=== PATIENT | female | born 1995 | race Caucasian/White ===

== ENCOUNTER 2021-02-04 16:02 | Emergency (ER) | payer SELFPAY ==
[~2021-02-04] VITALS: Ht 167 cm; Wt 63.0 kg
--- OUTSIDE RECORDS SUMMARY | 2021-02-04 16:08 | XMS REPORT | Clinical Summary ---
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 Control Analyst Name Role Phone Aydin Salas MD PCP Allergies No Known Active Allergies Medications No known medications Active Problems No known active problems Social History Date Tobacco Use Types Packs/Day Years Used Current Every Day Smoker Cigarettes 1 Smokeless Tobacco: Never Used Comments Alcohol Use Standard Drinks/Week daily , beer vodka Yes 0 (1 standard drink = 0.6 o z pure alcohol) Sex Assigned at Date Recorded Female 12/24/2018 7:49 AM CDT Last Filed Vital Signs Reading Time Taken Comments Vital Sign 115/78 05/17/2017 2:16 PM MENTAL TESTER Blood Pressure 64 05/17/2017 2:16 PM MENTAL TESTER Pulse 36.8 C (98.3 F) 05/17/2017 2:16 PM MENTAL TESTER Temperature 18 05/17/2017 2:16 PM MENTAL TESTER Respiratory Rate 99% 05/17/2017 2:16 PM MENTAL TESTER Oxygen Saturation - - Inhaled Oxygen Concentration 80.7 kg (178 lb) 05/16/2017 11:19 PM MENTAL TESTER Weight 180.3 cm (5' 11") 05/16/2017 11:19 PM MENTAL TESTER Height 24.83 05/16/2017 11:19 PM MENTAL TESTER Body Mass Index Plan of Treatment Not on file Results Not on filefrom Last 3 Months Insurance Type Payer Benefit Subscriber ID Effective Phone Address Plan / Dates Group MEDICAID [employer] [place] [id number] ([place] -Present HE[place] [phone] [id number] (Home) [place] [id number] Abigail Phelps Personal/F Self 1995 [address] (Home) [place] [id number] Abigail Phelps Personal/F Self 1995 [address] (Home) [place] [address] Advance Directives For more information, please contact: [phone] 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
--- OUTSIDE RECORDS SUMMARY | 2021-02-04 16:08 | XMS REPORT | Clinical Summary ---
Author Author [facility] Organization [facility] Address Unknown Phone Unavailable Care Team Providers Care Scout Name Role Phone Olson, Braden Chamorro MD Unavailable Randy Shine MD PCP Source Comments Some departments are not documenting in the electronic medical record. If you d o not see the information that you expected, contact Release of Information in [facility] [employer] Information Management department at [phone] for further assistan ce in locating additional records.[facility] Allergies No Known Active Allergies Medications End Date Status Medication Sig Dispensed Refills Start Date Active other medication Take 1 Dose 0 by mouth daily. control pill. Active Problems Not on file Social History Date Tobacco Use Types Packs/Day Years Used Never Smoker Smokeless Tobacco: Never Used Comments Alcohol Use Standard Drinks/Week No 0 (1 standard drink = 0.6 o z pure alcohol) Sex Assigned at Date Recorded Not on file Last Filed Vital Signs Reading Time Taken Comments Vital Sign 123/71 12/22/2011 2:15 PM CDT Blood Pressure 122 12/22/2011 2:24 PM CDT Pulse 36.6 C (97.9 F) 12/22/2011 12:30 PM CDT Temperature - - Respiratory Rate 99% 12/22/2011 2:00 PM CDT Oxygen Saturation - - Inhaled Oxygen Concentration 64.9 kg (143 lb) 12/22/2011 8:01 AM CDT Weight 172.7 cm (5' 8") 12/22/2011 8:01 AM CDT Height 21.74 12/22/2011 8:01 AM CDT Body Mass Index Plan of Treatment Health Maintenance Due Date Last Done Comments HPV VACCINES (1 - 2-dose 12/06/2006 series) HIV SCREENING 12/06/2010 DTAP/TDAP VACCINES (1 - 12/06/2013 Tdap) HEPATITIS C SCREENING 12/06/2013 PHYSICAL (COMPREHENSIVE) 12/06/2013 EXAM CERVICAL CANCER SCREENING 12/06/2016 INFLUENZA VACCINE 03/06/2021 Results Not on filefrom Last 3 Months 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
--- NOTE | 2021-02-04 16:17 | ED Upper Extremity ---
General Chief Complaint: Laceration Stated Complaint: LT HAND INJ History of Present Illness Date Seen by Provider: Feb 04, 2021 Time Seen by Provider: 16:14 Initial Comments Patient with injury to her left hand ring finger from punching some auto glass in an attempt to break it. Told that she was encouraged by some "friends", but now she regrets it. Her story does not make much sense. No other injuries or pain, states her tetanus is up-to-date. Allergies and Home Medications Allergies Coded Allergies: No Known Drug Allergies (Unverified , 02/04/21) Patient Home Medication List Home Medication List Reviewed: Yes Review of Systems Constitutional: No fever, No malaise Musculoskeletal: see HPI, other (finger pain) Skin: see HPI, other (cuts to left hand RF) Past Ddybaap-Olccny-Xfdjow Hx Patient Social History Tobacco Use?: No Use of E-Cig and/or Vaping dev: Yes E-Cig or Vaping type used: Nicotine Substance use?: Yes Substance type: Methamphetamine, Marijuana Substance frequency: Daily Alcohol Use?: Yes Alcohol type: Beer Alcohol Frequency: Once in a while Pt feels they are or have been: No Physical Exam Vital Signs Vital Signs - First Documented 02/04/21 16:10 Temp 36.2 Pulse 123 Resp 14 B/P (MAP) 125/92 (103) Pulse Ox 100 O2 Delivery Room Air Capillary Refill : Height, Weight, BMI Height: '" Weight: lbs. oz. kg; BMI Method: General Appearance: WD/WN, no apparent distress Hand: normal inspection, normal ROM, Left, soft tissue tenderness (superficial lacerations- tiny w no palpable or visible FB. ) Progress/Results/Core Measures Results/Orders My Orders Orders - ARIS LAY DO Bacitracin Ointment (Bacitracin Ointment (02/04/21 21:00) Vital Signs/I&O 02/04/21 02/04/21 16:10 16:24 Temp 36.2 36.2 Pulse 123 123 Resp 14 14 B/P (MAP) 125/92 (103) 125/92 Pulse Ox 100 100 O2 Delivery Room Air Room Air Progress Progress Note : Progress Note Patient refused an X-ray to look for embedded glass or further/ deeper wound exploration. Advised on wound care and follow up if problems or concerns of infection or FB retained. Departure Impression Primary Impression: Laceration of finger Qualified Codes: S61.211A - Laceration without foreign body of left index finger without damage to nail, initial encounter Disposition: 01 HOME, SELF-CARE Condition: Stable Departure-Patient Inst. Decision time for Depature: 16:15 Referrals: [facility] (PCP/Family) Primary Care Physician Patient Instructions: Skin Abrasions (DC) Add. Discharge Instructions: Wash w soap daily, gently scrub w a soft cloth, removing any small pieces of glass if felt. Apply antibiotic ointment daily and keep covered for 1 week. Seek medical care if signs of infection develop: increased redness, swelling or wound discharge All discharge instructions reviewed with patient and/or family. Voiced understanding. ARIS LAY DO Feb 04, 2021 16:17
[2021-02-04 16:24] VITALS: BP 125/92
[2021-02-04] MEDS ORDERED: BACITRACIN OINTMENT 28 GM TUBE TOP SCH (21:00)
== END 2021-02-04 16:23 | disposition home or self-care (01) ==
LOC: ER FS 16:05
DX: S61.215A Laceration without foreign body of left ring finger without damage to nail, initial encounter (principal); W25.XXXA Contact with sharp glass, initial encounter
CPT/HCPCS: 99281

== ENCOUNTER 2021-04-08 01:46 | Emergency (ER) | payer SELFPAY ==
[~2021-04-08] VITALS: Ht 182 cm; Wt 63.6 kg
[2021-04-08] MEDS ORDERED: NS IV 1000 ML 1,000 ML IV STA (02:08)
--- NOTE | 2021-04-08 02:14 | ED GU-Female ---
General Chief Complaint: - Reproductive Stated Complaint: POSS MISCARRIAGE Source: patient History of Present Illness Date Seen by Provider: Apr 08, 2021 Time Seen by Provider: 01:52 Initial Comments 25-year-old female presenting with complaints of vaginal bleeding for over a week. She states that she had her last menstrual period about 2 months ago. S he had a home test that was positive. She has an appointment on April 08 to see provider in the [facility] clinic about . However over the last week she has had increased vaginal bleeding. Tonight she felt like the bleeding had increased and she was having cramping pain that felt like contractions. She did have discharge last week. She was concerned that her boyfriend had cheated on her. She had been using methamphetamines up to the point of when she had a positive home test however when she started bleeding she started using meth amphetamines again. She has used methamphetamines tonight prior to coming to the emergency department. Patient denies having been given RhoGam with previous pregnancies. Associated Symptoms: No diaphoresis; dysuria; No fever/chills, No loss of bladder control, No lower back pain, No lumps, No mass, No nausea/vomiting, No nocturia, No polyuria, No swelling, No syncope, No urinary frequency Allergies and Home Medications Allergies Coded Allergies: No Known Drug Allergies (Unverified , 02/04/21) Patient Home Medication List Home Medication List Reviewed: Yes Review of Systems Review of Systems Constitutional: No chills, No dizziness, No fever EENTM: no symptoms reported Respiratory: no symptoms reported Cardiovascular: palpitations Gastrointestinal: No nausea, No vomiting Genitourinary: discharge (Over a week ago, now just having vaginal bleeding. She is using about a pad every 1-3 hours.); denies dysuria : Yes (Based on a home test. LMP about 2 mo ago but unsure date) Musculoskeletal: no symptoms reported Skin: no symptoms reported Psychiatric/Neurological: Anxiety, Emotional Problems Hematologic/Lymphatic: Denies Blood Clots, Denies Easy Bleeding, Denies Easy Bruising Past Vpqumny-Admflb-Vifrjb Hx Patient Social History Tobacco Use?: Yes Tobacco type used: Cigarettes Substance use?: Yes Substance type: Methamphetamine, Marijuana Past Medical History Surgeries: No Physical Exam Vital Signs Vital Signs - First Documented 04/08/21 01:55 Temp 36.6 Pulse 131 Resp 18 B/P (MAP) 148/110 (123) Pulse Ox 99 O2 Delivery Room Air Capillary Refill : Height, Weight, BMI Height: '" Weight: lbs. oz. kg; 22.00 BMI Method: General Appearance: thin, other (anxious) HEENT: pharynx normal Neck: non-tender, full range of motion, supple, normal inspection Cardiovascular: normal peripheral pulses, tachycardia Respiratory: chest non-tender, lungs clear, normal breath sounds Gastrointestinal: normal bowel sounds, non tender, soft, no pulsatile mass Extremities: normal range of motion, non-tender, normal capillary refill Neurologic/Psychiatric: alert, oriented x 3 Skin: normal color, warm/dry Progress/Results/Core Measures Suspected Sepsis SIRS Temperature: Pulse: Respiratory Rate: Laboratory Tests 04/08/21 02:00: White Blood Count 13.8H Blood Pressure / Mean: Laboratory Tests 04/08/21 02:00: Platelet Count 301 Results/Orders Lab Results Laboratory Tests Test 04/08/21 02:00 04/08/21 02:15 Range/Units White Blood Count 13.8 H 4.3-11.0 10^3/uL Red Blood Count 4.63 3.80-5.11 10^6/uL Hemoglobin 14.0 11.5-16.0 g/dL Hematocrit 41 35-52 % Mean Corpuscular Volume 89 80-99 fL Mean Corpuscular Hemoglobin 30 25-34 pg Mean Corpuscular Hemoglobin Concent 34 32-36 g/dL Red Cell Distribution Width 12.0 10.0-14.5 % Platelet Count 301 130-400 10^3/uL Mean Platelet Volume 9.4 9.0-12.2 fL Immature Granulocyte % (Auto) 0 % Neutrophils (%) (Auto) 62 42-75 % Lymphocytes (%) (Auto) 30 12-44 % Monocytes (%) (Auto) 7 0-12 % Eosinophils (%) (Auto) 2 0-10 % Basophils (%) (Auto) 0 0-10 % Neutrophils # (Auto) 8.5 H 1.8-7.8 X 10^3 Lymphocytes # (Auto) 4.1 H 1.0-4.0 X 10^3 Monocytes # (Auto) 0.9 0.0-1.0 X 10^3 Eosinophils # (Auto) 0.2 0.0-0.3 10^3/uL Basophils # (Auto) 0.0 0.0-0.1 10^3/uL Immature Granulocyte # (Auto) 0.0 0.0-0.1 10^3/uL Human Chorionic Gonadotropin, Quant 2231 H <5 MIU/ML Urine Color RED H Urine Clarity TURBID Urine pH 8.0 5-9 Urine Specific [place] 1.015 L 1.016-1.022 Urine Protein 2+ H NEGATIVE Urine Glucose (UA) NEGATIVE NEGATIVE Urine Ketones TRACE H NEGATIVE Urine Nitrite POSITIVE H NEGATIVE Urine Bilirubin NEGATIVE NEGATIVE Urine Urobilinogen 1.0 < = 1.0 MG/DL Urine Leukocyte Esterase TRACE H NEGATIVE Urine RBC (Auto) 3+ H NEGATIVE Urine RBC TNTC H /HPF Urine WBC RARE /HPF Urine Squamous Epithelial Cells RARE /HPF Urine Crystals NONE /LPF Urine Bacteria TRACE /HPF Urine Casts NONE /LPF Urine Mucus SMALL H /LPF Urine Culture Indicated NO Urine Opiates Screen NEGATIVE NEGATIVE Urine Oxycodone Screen NEGATIVE NEGATIVE Urine Methadone Screen NEGATIVE NEGATIVE Urine Propoxyphene Screen NEGATIVE NEGATIVE Urine Barbiturates Screen NEGATIVE NEGATIVE Ur Tricyclic Antidepressants Screen NEGATIVE NEGATIVE Urine Phencyclidine Screen NEGATIVE NEGATIVE Urine Amphetamines Screen POSITIVE H NEGATIVE Urine Methamphetamines Screen POSITIVE H NEGATIVE Urine Benzodiazepines Screen NEGATIVE NEGATIVE Urine Cocaine Screen NEGATIVE NEGATIVE Urine Cannabinoids Screen POSITIVE H NEGATIVE My Orders Orders - DEION GUAMAN MD Ua Culture If Indicated (04/08/21 01:55) Hcg,Quantitative (04/08/21 01:55) Cbc With Automated Diff (04/08/21 01:55) Drug Screen Stat (Urine) (04/08/21 01:55) Ed Iv/Invasive Line Start (04/08/21 02:07) Neis Kenny Dna Urine Test (04/08/21 02:07) Chlamydia Trachomatis Urine (04/08/21 02:07) Ns Iv 1000 Ml (Sodium Chloride 0.9%) (04/08/21 02:08) Vital Signs/I&O 04/08/21 01:55 Temp 36.6 Pulse 131 Resp 18 B/P (MAP) 148/110 (123) Pulse Ox 99 O2 Delivery Room Air Capillary Refill : Progress Note #1: Progress Note obtain labs to check urine for infection and drugs. Check blood count and Quantitative HCG. Give IVF 1 L NS bolus for hydration with her tachycardia and methamphetamine use tonight. Progress Note #2: Progress Note Labs show mild elevation of her white blood cell count of 13.8 thousand. Her hemoglobin is good at 14,000. Her urinalysis does show blood which makes it difficult to determine if there is additional infection or if it is all just blood. She has a quantitative hCG of 2231. She continues to deny having any pain currently. Her heart rate has improved with IV fluids. Stressed the importance of avoiding methamphetamine abuse and pushing fluids. Counseled to keep appointment later today to follow-up through the clinic. They may want to do an ultrasound to look for possible bleeding or hematoma around the placenta. If she truly has been having bleeding since 28 March having a beta-hCG over 2,000 would be encouraging. However counseled her that anytime there is bleeding during there is a threatened miscarriage. At this point she will need to have repeat labs and/or ultrasound to further determine the exact nature of the bleeding and status of her . Until then do not use any drugs, no sex or anything in the vagina. Since she was concerned for possible sexually transmitted infection we will give her Rocephin and Zithromax for GC and Chlamydia coverage while those tests are pending. Departure Impression Primary Impression: Threatened miscarriage in early Additional Impression: Methamphetamine abuse Disposition: HOME, SELF-CARE Condition: Stable Departure-Patient Inst. Decision time for Depature: 03:17 Referrals: [facility] (PCP/Family) Primary Care Physician Patient Instructions: Bleeding in Early ED, Methamphetamine Add. Discharge Instructions: Do not use Methamphetamines. Make sure you are continuing to drink plenty of water and fluids. Keep appointment today, Apr.08, to see the clinic. If you have continued pain/bleeding then they could check an ultrasound and see about recheck of your HCG hormone level in 48-72 hours. At that time could see if the HCG hormone level was continuing to climb or if it is dropping. May use Acetaminophen 650 mg every 4 hours as needed for pain. If you start running a fever over 101 F, bleeding that saturates more than 2 pads in an hour for more than 2 hours, worsening pain then get rechecked to look for other sources of pain and symptoms All discharge instructions reviewed with patient and/or family. Voiced understanding. DEION GUAMAN MD Apr 08, 2021 02:14
[2021-04-08 02:41] LABS: BILIRUBIN,URINE NEGATIVE (NEGATIVE); CLARITY,URINE TURBID; COLOR,URINE RED; GLUCOSE, URINE (UA) NEGATIVE (NEGATIVE); KETONES,URINE TRACE (NEGATIVE); LEUKOCYTE ESTERASE ,URINE TRACE (NEGATIVE); NITRITE,URINE POSITIVE (NEGATIVE); PROTEIN,URINE 2+ (NEGATIVE)
[2021-04-08 02:43] LABS: HEMATOCRIT 41 % (35-52); MEAN CORPUSCULAR HEMOGLOBIN 30 pg (25-34); MEAN CORPUSCULAR VOLUME 89 fL (80-99); WHITE BLOOD COUNT 13.8 10^3/uL (4.3-11.0)
[2021-04-08 02:44] LABS: EOSINOPHILS % (AUTO) 2 % (0-10); LYMPHOCYTES % (AUTO) 30 % (12-44); MEAN CORPUSCULAR HGB CONC 34 g/dL (32-36); MEAN PLATELET VOLUME 9.4 fL (9.0-12.2); MONOCYTES % (AUTO) 7 % (0-12); NEUTROPHILS % (AUTO) 62 % (42-75); PLATELET COUNT 301 10^3/uL (130-400)
[2021-04-08 02:45] LABS: BASOPHILS % (AUTO) 0 % (0-10); EOSINOPHILS # (AUTO) 0.2 10^3/uL (0.0-0.3); LYMPHOCYTES # (AUTO) 4.1 X 10^3 (1.0-4.0); MONOCYTES # (AUTO) 0.9 X 10^3 (0.0-1.0); NEUTROPHILS # (AUTO) 8.5 X 10^3 (1.8-7.8)
[2021-04-08 02:59] LABS: BACTERIA,URINE TRACE /HPF; RBC,URINE TNTC /HPF; WBC,URINE RARE /HPF
[2021-04-08 03:00] LABS: SQUAMOUS EPITHELIAL CELL,UR RARE /HPF
[2021-04-08 03:02] LABS: AMPHETAMINE SCREEN, URINE POSITIVE (NEGATIVE); BARBITURATE SCREEN URINE NEGATIVE (NEGATIVE); BENZODIAZEPINES SCREEN URINE NEGATIVE (NEGATIVE); CANNABINOID SCREEN, URINE POSITIVE (NEGATIVE); COCAINE SCREEN URINE NEGATIVE (NEGATIVE); METHADONE STAT NEGATIVE (NEGATIVE); METHAMPHETAMINE SCREEN URINE S POSITIVE (NEGATIVE); OPIATE SCREEN URINE NEGATIVE (NEGATIVE); OXYCODONE STAT NEGATIVE (NEGATIVE); PROPOXYPHENE STAT NEGATIVE (NEGATIVE); TRICYCLIC ANTIDEPRESSANTS SCRE NEGATIVE (NEGATIVE)
[2021-04-08] MEDS ORDERED: cefTRIAXone 1,000 MG in WATER (STERILE) FOR INJECTION 10 ML IV STA (03:42)
[2021-04-08] MEDS ORDERED: AZITHROMYCIN 250 MG TAB (ZITHROMAX) PO STA (03:42)
[2021-04-08 04:05] VITALS: BP 112/69
== END 2021-04-08 04:05 | disposition home or self-care (01) ==
LOC: EDUNIT# 01:46 → ER FS 01:50
DX: O20.0 Threatened abortion (principal); F15.10 Other stimulant abuse, uncomplicated; Z72.0 Tobacco use
CPT/HCPCS: 36415; 80306; 81000; 84702; 85025; 87491; 87591

== ENCOUNTER 2021-07-27 16:14 | Emergency (ER) | payer SELFPAY ==
--- NOTE | 2021-07-27 16:18 | ED Psychosocial ---
General Chief Complaint: Psych/Social Disorder Stated Complaint: SUICIDAL IDEATION History of Present Illness Date Seen by Provider: Jul 27, 2021 Time Seen by Provider: 16:16 Initial Comments 25-year-old female brought in with concerns for suicidal ideation. Patient was sent in by urgent care because they reported that she was suicidal and that if she did not get inpatient today she was going to hurt her self. Patient reports that she is "thought about hurting herself every day since she started meth." That started around 2017. Patient does not have a plan at this time that she is shared with staff or me. Patient reports that "she feels like it anytime it can happen" patient admits to using meth just prior to arrival. Allergies and Home Medications Allergies Coded Allergies: No Known Drug Allergies (Unverified , 02/04/21) Patient Home Medication List Home Medication List Reviewed: Yes Review of Systems Constitutional: No chills, No malaise EENTM: no symptoms reported Respiratory: no symptoms reported Cardiovascular: no symptoms reported Gastrointestinal: no symptoms reported Genitourinary: no symptoms reported Musculoskeletal: no symptoms reported Skin: no symptoms reported Psychiatric/Neurological: See HPI Past Wezcsku-Uresjb-Qrwzft Hx Immunizations Up To Date First/Initial COVID19 Vaccinat: denies Past Medical History Surgeries: No Physical Exam Vital Signs - First Documented 07/27/21 17:11 Temp 36.1 Pulse 106 Resp 16 B/P (MAP) 119/83 (95) Pulse Ox 99 O2 Delivery Room Air Capillary Refill : Height, Weight, BMI Height: '" Weight: lbs. oz. kg; 19.00 BMI Method: General Appearance: WD/WN, no apparent distress HEENT: PERRL/EOMI Respiratory: lungs clear, normal breath sounds Cardiovascular: normal peripheral pulses, regular rate, rhythm Gastrointestinal: non tender, soft Extremities: non-tender, normal inspection Neurologic/Psychiatric: alert, normal mood/affect, oriented x 3 Appearance/Memory: appropriate appearance, no memory impairment Behavior/Eye Contact: avoids eye contact Thoughts/Hallucinations: other (state suicidal ideations daily, no plan ) Progress/Results/Core Measures Results/Orders Lab Results Laboratory Tests Test 07/27/21 13:49 07/27/21 16:40 Range/Units SARS-CoV-2 RNA (RT-PCR) Not Detected Not Detecte White Blood Count 8.1 4.3-11.0 10^3/uL Red Blood Count 4.36 3.80-5.11 10^6/uL Hemoglobin 13.1 11.5-16.0 g/dL Hematocrit 38 35-52 % Mean Corpuscular Volume 87 80-99 fL Mean Corpuscular Hemoglobin 30 25-34 pg Mean Corpuscular Hemoglobin Concent 34 32-36 g/dL Red Cell Distribution Width 12.4 10.0-14.5 % Platelet Count 231 130-400 10^3/uL Mean Platelet Volume 9.6 9.0-12.2 fL Immature Granulocyte % (Auto) 0 % Neutrophils (%) (Auto) 55 42-75 % Lymphocytes (%) (Auto) 37 12-44 % Monocytes (%) (Auto) 7 0-12 % Eosinophils (%) (Auto) 1 0-10 % Basophils (%) (Auto) 0 0-10 % Neutrophils # (Auto) 4.4 1.8-7.8 10^3/uL Lymphocytes # (Auto) 3.0 1.0-4.0 10^3/uL Monocytes # (Auto) 0.5 0.0-1.0 10^3/uL Eosinophils # (Auto) 0.1 0.0-0.3 10^3/uL Basophils # (Auto) 0.0 0.0-0.1 10^3/uL Immature Granulocyte # (Auto) 0.0 0.0-0.1 10^3/uL Urine Color YELLOW Urine Clarity SL CLOUDY Urine pH 6.0 5-9 Urine Specific [place] >=1.030 1.016-1.022 Urine Protein TRACE H NEGATIVE Urine Glucose (UA) NEGATIVE NEGATIVE Urine Ketones NEGATIVE NEGATIVE Urine Nitrite NEGATIVE NEGATIVE Urine Bilirubin NEGATIVE NEGATIVE Urine Urobilinogen 0.2 < = 1.0 MG/DL Urine Leukocyte Esterase 1+ H NEGATIVE Urine RBC (Auto) NEGATIVE NEGATIVE Urine RBC 0-2 /HPF Urine WBC 2-5 /HPF Urine Squamous Epithelial Cells 0-2 /HPF Urine Crystals NONE /LPF Urine Bacteria MODERATE H /HPF Urine Casts NONE /LPF Urine Mucus SMALL H /LPF Urine Culture Indicated YES Sodium Level 140 135-145 MMOL/L Potassium Level 3.4 L 3.6-5.0 MMOL/L Chloride Level 104 98-107 MMOL/L Carbon Dioxide Level 24 21-32 MMOL/L Anion Gap 12 5-14 MMOL/L Blood Urea Nitrogen 11 7-18 MG/DL Creatinine 0.73 0.60-1.30 MG/DL Estimat Glomerular Filtration Rate 117 BUN/Creatinine Ratio 15 Glucose Level 67 L 70-105 MG/DL Calcium Level 9.4 8.5-10.1 MG/DL Corrected Calcium 8.5-10.1 MG/DL Total Bilirubin 0.5 0.1-1.0 MG/DL Aspartate Amino Transf (AST/SGOT) 12 5-34 U/L Alanine Aminotransferase (ALT/SGPT) 12 0-55 U/L Alkaline Phosphatase 46 40-136 U/L Total Protein 7.5 6.4-8.2 GM/DL Albumin 4.7 H 3.2-4.5 GM/DL Salicylates Level < 0.3 L 5.0-20.0 MG/DL Urine Opiates Screen NEGATIVE NEGATIVE Urine Oxycodone Screen NEGATIVE NEGATIVE Urine Methadone Screen NEGATIVE NEGATIVE Urine Propoxyphene Screen NEGATIVE NEGATIVE Acetaminophen Level < 10 L 10-30 UG/ML Urine Barbiturates Screen NEGATIVE NEGATIVE Ur Tricyclic Antidepressants Screen NEGATIVE NEGATIVE Urine Phencyclidine Screen NEGATIVE NEGATIVE Urine Amphetamines Screen POSITIVE H NEGATIVE Urine Methamphetamines Screen POSITIVE H NEGATIVE Urine Benzodiazepines Screen NEGATIVE NEGATIVE Urine Cocaine Screen NEGATIVE NEGATIVE Urine Cannabinoids Screen POSITIVE H NEGATIVE Serum Alcohol < 10 <10 MG/DL My Orders Orders - ROSS,LEONARD L DO Ua Culture If Indicated (07/27/21 16:36) Cbc With Automated Diff (07/27/21 16:36) Comprehensive Metabolic Panel (07/27/21 16:36) Alcohol (07/27/21 16:36) Drug Screen Stat (Urine) (07/27/21 16:36) Acetaminophen (07/27/21 16:36) Salicylate (07/27/21 16:36) Ekg Tracing (07/27/21 16:36) Monitor-Rhythm Ecg Trace Only (07/27/21 16:36) Bh Status Checks/Observation Q15M (07/27/21 16:36) Covid 19 Inhouse Test (07/27/21 16:46) Urine Culture (07/27/21 16:40) Vital Signs/I&O 07/27/21 17:11 Temp 36.1 Pulse 106 Resp 16 B/P (MAP) 119/83 (95) Pulse Ox 99 O2 Delivery Room Air Progress Progress Note : Progress Note Patient was evaluated by behavioral health. Patient seemed to have good insight is the meth is causing her problems. Patient is not actively wanting to hurt herself at this time. Behavioral health did make a safety plan with her. She does already have outpatient behavioral health which she needs to follow-up with. Patient is stable and discharged home per mental health evaluation Departure Impression Primary Impression: Methamphetamine abuse Additional Impressions: Reactive depression (situational) Passive suicidal ideations Disposition: 01 HOME, SELF-CARE Condition: Stable Departure-Patient Inst. Referrals: AMADO BARNES MD (PCP/Family) Primary Care Physician Patient Instructions: Suicide Prevention, Meth Mouth, Drug Abuse and Drug Addiction (DC), Drug Abuse Treatment Add. Discharge Instructions: Please follow-up with your behavioral health specialist for further outpatient management Please consider getting additional outpatient help for your abuse and resources that can help with you wanting to quit your meth addiction All discharge instructions reviewed with patient and/or family. Voiced underst anding. LEONARD ROSS DO Jul 27, 2021 16:18
[2021-07-27 16:42] LABS: BASOPHILS % (AUTO) 0 % (0-10); EOSINOPHILS # (AUTO) 0.1 10^3/uL (0.0-0.3); EOSINOPHILS % (AUTO) 1 % (0-10); HEMATOCRIT 38 % (35-52); HEMOGLOBIN 13.1 g/dL (11.5-16.0); LYMPHOCYTES % (AUTO) 37 % (12-44); MEAN CORPUSCULAR HEMOGLOBIN 30 pg (25-34); MEAN CORPUSCULAR HGB CONC 34 g/dL (32-36); MEAN CORPUSCULAR VOLUME 87 fL (80-99); MEAN PLATELET VOLUME 9.6 fL (9.0-12.2); MONOCYTES # (AUTO) 0.5 10^3/uL (0.0-1.0); MONOCYTES % (AUTO) 7 % (0-12); NEUTROPHILS # (AUTO) 4.4 10^3/uL (1.8-7.8); NEUTROPHILS % (AUTO) 55 % (42-75); PLATELET COUNT 231 10^3/uL (130-400); WHITE BLOOD COUNT 8.1 10^3/uL (4.3-11.0)
[2021-07-27 16:43] LABS: BILIRUBIN,URINE NEGATIVE (NEGATIVE); CLARITY,URINE SL CLOUDY; COLOR,URINE YELLOW; GLUCOSE, URINE (UA) NEGATIVE (NEGATIVE); KETONES,URINE NEGATIVE (NEGATIVE); LEUKOCYTE ESTERASE ,URINE 1+ (NEGATIVE); NITRITE,URINE NEGATIVE (NEGATIVE); PROTEIN,URINE TRACE (NEGATIVE)
[2021-07-27 16:55] LABS: AMPHETAMINE SCREEN, URINE POSITIVE (NEGATIVE); BENZODIAZEPINES SCREEN URINE NEGATIVE (NEGATIVE); CANNABINOID SCREEN, URINE POSITIVE (NEGATIVE); COCAINE SCREEN URINE NEGATIVE (NEGATIVE); METHAMPHETAMINE SCREEN URINE S POSITIVE (NEGATIVE)
[2021-07-27 16:56] LABS: BARBITURATE SCREEN URINE NEGATIVE (NEGATIVE); METHADONE STAT NEGATIVE (NEGATIVE); OPIATE SCREEN URINE NEGATIVE (NEGATIVE); OXYCODONE STAT NEGATIVE (NEGATIVE); PROPOXYPHENE STAT NEGATIVE (NEGATIVE); TRICYCLIC ANTIDEPRESSANTS SCRE NEGATIVE (NEGATIVE)
[2021-07-27 17:02] LABS: BACTERIA,URINE MODERATE /HPF; RBC,URINE 0-2 /HPF; SQUAMOUS EPITHELIAL CELL,UR 0-2 /HPF
[2021-07-27 17:05] LABS: ALANINE AMINOTRANSFERASE 12 U/L (0-55); ALBUMIN 4.7 GM/DL (3.2-4.5); ALKALINE PHOSPHATASE 46 U/L (40-136); BILIRUBIN,TOTAL 0.5 MG/DL (0.1-1.0); BUN/CREATININE RATIO 15; CALCIUM 9.4 MG/DL (8.5-10.1); CARBON DIOXIDE 24 MMOL/L (21-32); CHLORIDE 104 MMOL/L (98-107); CREATININE SERUM 0.73 MG/DL (0.60-1.30); GFR ESTIMATED 117; GLUCOSE 67 MG/DL (70-105); POTASSIUM 3.4 MMOL/L (3.6-5.0); SODIUM 140 MMOL/L (135-145); TOTAL PROTEIN 7.5 GM/DL (6.4-8.2)
[2021-07-27 17:06] LABS: ACETAMINOPHEN < 10 UG/ML (10-30); SALICYLATE < 0.3 MG/DL (5.0-20.0)
[2021-07-27 21:28] VITALS: BP 121/85
== END 2021-07-27 21:28 | disposition home or self-care (01) ==
LOC: EDUNIT# 16:14 → ER FS 16:15
DX: F15.10 Other stimulant abuse, uncomplicated (principal); F32.9 Major depressive disorder, single episode, unspecified; R45.851 Suicidal ideations; Z20.822 Contact with and (suspected) exposure to COVID-19
CPT/HCPCS: 36415; 80053; 80306; 81000; 85025; 87088; 87636; 93005; 93041; 99283; G0480 ×3; 80320; 80329

== ENCOUNTER 2022-06-26 22:49 | Emergency (ER) | payer MEDICAID, OTHER ==
[~2022-06-26] VITALS: Ht 182 cm; Wt 70.7 kg
[2022-06-26 23:02] VITALS: BP 106/57
[2022-06-26] MEDS ORDERED: LACTATED RINGERS 1,000 ML IV STA (23:24)
[2022-06-26] MEDS ORDERED: ACETAMINOPHEN 500 MG TAB (TYLENOL) PO ONE (23:30)
[2022-06-26 23:31] LABS: BASOPHILS % (AUTO) 0 % (0-10); EOSINOPHILS # (AUTO) 0.1 10^3/uL (0.0-0.3); EOSINOPHILS % (AUTO) 0 % (0-10); HEMATOCRIT 31 % (35-52); HEMOGLOBIN 11.1 g/dL (11.5-16.0); LYMPHOCYTES # (AUTO) 1.7 10^3/uL (1.0-4.0); LYMPHOCYTES % (AUTO) 13 % (12-44); MEAN CORPUSCULAR HEMOGLOBIN 30 pg (25-34); MEAN CORPUSCULAR HGB CONC 36 g/dL (32-36); MEAN CORPUSCULAR VOLUME 84 fL (80-99); MEAN PLATELET VOLUME 9.7 fL (9.0-12.2); MONOCYTES # (AUTO) 1.5 10^3/uL (0.0-1.0); MONOCYTES % (AUTO) 11 % (0-12); NEUTROPHILS # (AUTO) 9.7 10^3/uL (1.8-7.8); NEUTROPHILS % (AUTO) 74 % (42-75); PLATELET COUNT 215 10^3/uL (130-400)
[2022-06-26 23:35] LABS: BILIRUBIN,URINE NEGATIVE (NEGATIVE); COLOR,URINE YELLOW; GLUCOSE, URINE (UA) NEGATIVE (NEGATIVE); KETONES,URINE NEGATIVE (NEGATIVE); LEUKOCYTE ESTERASE ,URINE 2+ (NEGATIVE); NITRITE,URINE NEGATIVE (NEGATIVE); PH,URINE 7.5 (5-9); PROTEIN,URINE NEGATIVE (NEGATIVE)
[2022-06-26 23:36] LABS: CLARITY,URINE CLOUDY
[2022-06-26 23:38] LABS: BACTERIA,URINE LARGE /HPF; WBC,URINE TNTC /HPF
--- NOTE | 2022-06-26 23:40 | ED General ---
General Chief Complaint: Fever-Adult/Adol Stated Complaint: FEVER Source of Information: Patient Exam Limitations: No Limitations History of Present Illness Date Seen by Provider: Jun 26, 2022 Time Seen by Provider: 22:55 Initial Comments 26-year-old female with no pertinent past medical history that is at roughly 13 weeks gestation she believes coming in due to fever, cough, and general malaise. Started feeling slightly bad last night, fever and malaise started today. She states she just wanted to sleep all day. She is had vomiting most of the , but has not vomited today. She feels constipated, but did have 1 normal bowel movement today. Had Tylenol roughly 7 hours ago. Denies any chest pain, shortness of breath, abdominal pain, vaginal bleeding, vaginal discharge, dysuria, rash, weakness, numbness, headache, or any other concerns. Allergies and Home Medications Allergies Coded Allergies: No Known Drug Allergies (Unverified , 02/04/21) Patient Home Medication List Home Medication List Reviewed: Yes Cefdinir (Cefdinir) 300 Mg Capsule, 300 MG PO BID Prescribed by: CASTRO GONSALES on 06/26/22 3958 Review of Systems Review of Systems Constitutional: fever, malaise EENTM: nose congestion Respiratory: cough Cardiovascular: no symptoms reported Gastrointestinal: no symptoms reported Genitourinary: no symptoms reported Musculoskeletal: no symptoms reported Skin: no symptoms reported Psychiatric/Neurological: No Symptoms Reported Hematologic/Lymphatic: No Symptoms Reported All Other Systems Reviewed Negative Unless Noted: Yes Past Fewufyj-Cohnag-Imtknu Hx Patient Social History Tobacco Use?: No Use of E-Cig and/or Vaping dev: Yes E-Cig or Vaping type used: Nicotine Substance use?: Yes Substance type: Marijuana Alcohol Use?: No Immunizations Up To Date First/Initial COVID19 Vaccinat: denies Second COVID19 Vaccination Timothy: denies Third COVID19 Vaccination Date: denies Past Medical History Surgery/Hospitalization HX: methamphetamines abuse; suicidal ideation; left knee surgery Surgeries: No Physical Exam Vital Signs Vital Signs - First Documented 06/26/22 23:50 Temp 37.5 Capillary Refill : Height, Weight, BMI Height: '" Weight: lbs. oz. kg; 19.00 BMI Method: General Appearance: No Apparent Distress, WD/WN Eyes: Bilateral Eye Normal Inspection HEENT: PERRL/EOMI, Normal ENT Inspection, Pharynx Normal Neck: Full Range of Motion, Normal Inspection, Non Tender, Supple Respiratory: Chest Non Tender, Lungs Clear, Normal Breath Sounds, No Accessory Muscle Use, No Respiratory Distress Cardiovascular: Regular Rate, Rhythm, No Edema, Normal Peripheral Pulses Gastrointestinal: Normal Bowel Sounds, Non Tender, Soft; No Distended, No Guarding; Other (Gravid abdomen) Back: Normal Inspection, No CVA Tenderness Extremity: Normal Capillary Refill, Normal Inspection, Normal Range of Motion, Non Tender, No Calf Tenderness, No Pedal Edema Neurologic/Psychiatric: Alert, No Motor/Sensory Deficits, Normal Mood/Affect Skin: Normal Color, Warm/Dry Progress/Results/Core Measures Suspected Sepsis SIRS Temperature: Pulse: Respiratory Rate: Laboratory Tests 06/26/22 23:21: White Blood Count 13.0H Blood Pressure / Mean: Laboratory Tests 06/26/22 23:21: Creatinine 0.55L, Platelet Count 215, Total Bilirubin 0.2 Results/Orders Lab Results Laboratory Tests Test 06/26/22 11:24 06/26/22 23:21 Range/Units Urine Color YELLOW Urine Clarity CLOUDY Urine pH 7.5 5-9 Urine Specific Rupert 1.010 L 1.016-1.022 Urine Protein NEGATIVE NEGATIVE Urine Glucose (UA) NEGATIVE NEGATIVE Urine Ketones NEGATIVE NEGATIVE Urine Nitrite NEGATIVE NEGATIVE Urine Bilirubin NEGATIVE NEGATIVE Urine Urobilinogen 1.0 < = 1.0 MG/DL Urine Leukocyte Esterase 2+ H NEGATIVE Urine RBC (Auto) TRACE-I H NEGATIVE Urine RBC NONE /HPF Urine WBC TNTC H /HPF Urine Crystals NONE /LPF Urine Bacteria LARGE H /HPF Urine Casts NONE /LPF Urine Mucus NEGATIVE /LPF Urine Culture Indicated YES Influenza Type A (RT-PCR) Not Detected Not Detecte Influenza Type B (RT-PCR) Not Detected Not Detecte SARS-CoV-2 RNA (RT-PCR) Not Detected Not Detecte White Blood Count 13.0 H 4.3-11.0 10^3/uL Red Blood Count 3.65 L 3.80-5.11 10^6/uL Hemoglobin 11.1 L 11.5-16.0 g/dL Hematocrit 31 L 35-52 % Mean Corpuscular Volume 84 80-99 fL Mean Corpuscular Hemoglobin 30 25-34 pg Mean Corpuscular Hemoglobin Concent 36 32-36 g/dL Red Cell Distribution Width 12.6 10.0-14.5 % Platelet Count 215 130-400 10^3/uL Mean Platelet Volume 9.7 9.0-12.2 fL Immature Granulocyte % (Auto) 1 % Neutrophils (%) (Auto) 74 42-75 % Lymphocytes (%) (Auto) 13 12-44 % Monocytes (%) (Auto) 11 0-12 % Eosinophils (%) (Auto) 0 0-10 % Basophils (%) (Auto) 0 0-10 % Neutrophils # (Auto) 9.7 H 1.8-7.8 10^3/uL Lymphocytes # (Auto) 1.7 1.0-4.0 10^3/uL Monocytes # (Auto) 1.5 H 0.0-1.0 10^3/uL Eosinophils # (Auto) 0.1 0.0-0.3 10^3/uL Basophils # (Auto) 0.0 0.0-0.1 10^3/uL Immature Granulocyte # (Auto) 0.1 0.0-0.1 10^3/uL Sodium Level 134 L 135-145 MMOL/L Potassium Level 3.8 3.6-5.0 MMOL/L Chloride Level 99 98-107 MMOL/L Carbon Dioxide Level 23 21-32 MMOL/L Anion Gap 12 5-14 MMOL/L Blood Urea Nitrogen 9 7-18 MG/DL Creatinine 0.55 L 0.60-1.30 MG/DL Estimat Glomerular Filtration Rate 130 BUN/Creatinine Ratio 16 Glucose Level 97 70-105 MG/DL Calcium Level 9.4 8.5-10.1 MG/DL Corrected Calcium 9.5 8.5-10.1 MG/DL Total Bilirubin 0.2 0.1-1.0 MG/DL Aspartate Amino Transf (AST/SGOT) 7 5-34 U/L Alanine Aminotransferase (ALT/SGPT) 7 0-55 U/L Alkaline Phosphatase 45 40-136 U/L Total Protein 6.7 6.4-8.2 GM/DL Albumin 3.9 3.2-4.5 GM/DL My Orders Orders - CASTRO GONSALES MD Cbc With Automated Diff (06/26/22 23:24) Comprehensive Metabolic Panel (06/26/22 23:24) Ua Culture If Indicated (06/26/22 23:24) Influenza A And B By Pcr (06/26/22 23:24) Covid 19 Inhouse Test (06/26/22 23:24) Lactated Ringers (Lr 1000 Ml Iv Solution (06/26/22 23:24) Acetaminophen Tablet (Tylenol Tablet) (06/26/22 23:30) Urine Culture (06/26/22 11:24) Ceftriaxone 1 Gm Pre-Mix (Rocephin 1 Gm (06/26/22 23:45) Medications Given in ED Current Medications Medications Dose Ordered Sig/Elijah Route Start Time Stop Time Status Last Admin Dose Admin Acetaminophen 1,000 mg ONCE ONCE PO 06/26/22 23:30 06/26/22 23:31 DC 06/26/22 23:50 1,000 MG Ceftriaxone Sodium/Dextrose 50 ml @ 100 mls/hr ONCE ONCE IV 06/26/22 23:45 06/27/22 00:15 DC 06/26/22 23:51 100 MLS/HR Vital Signs/I&O 06/26/22 23:50 Temp 37.5 Capillary Refill : Progress Note : Progress Note 26-year-old female with URI type symptoms and fever while being in her first trimester . ABCs were intact and vitals were stable on presentation and she is afebrile. An IV was placed and basic labs were obtained. COVID and flu testing also sent. Urinalysis concerning for infection. She is not really having any flank pain or dysuria, but there are too numerous to count white blood cells. This is equivocal for pyelonephritis. Given her status, will go ahead and give her IV ceftriaxone. I discussed certainly and secondary Mester with severe pyelonephritis she would need to be admitted to the hospital. I discussed since she is first trimester, is not a clear-cut case of pyelonephritis, she has more URI type symptoms, that I think it is reasonable for her to have a trial of antibiotics at home, but to monitor herself closely, and come back to the ER if she has any concerns at all. I did a [id number] ultrasound showing a heart rate around 150 with movement. I believe she is otherwise stable for discharge with outpatient follow-up. She was sent home with strict return precautions. Departure Impression Primary Impression: Pyelonephritis Additional Impression: Qualified Codes: Z3A.13 - 13 weeks gestation of Disposition: HOME, SELF-CARE Condition: Stable Departure-Patient Inst. Decision time for Depature: 00:35 Referrals: AMADO BARNES MD (PCP/Family) Primary Care Physician Patient Instructions: Kidney Infection Add. Discharge Instructions: It appears like you have a kidney infection. You will be on antibiotics twice a day for the next 10 days. Take Tylenol as needed for fever or body aches. If you are not feeling significantly better in the next 24 to 48 hours, I want you to be seen by doctor. Scripts Cefdinir (Cefdinir) 300 Mg Capsule 300 MG PO BID for 10 Days, #20 CAP 0 Refills Prov: CASTRO GONSALES MD 06/26/22 Work/School Note: Work Release Form Date Seen in the Emergency Department: Jun 26, 2022 Return to Work: Jun 28, 2022 Restrictions: Return-No Fever (24hrs) CASTRO GONSALES MD Jun 26, 2022 23:40
[2022-06-26] MEDS ORDERED: cefTRIAXone 1 GM PRE-MIX 50 ML IV ONE (23:45)
[2022-06-26 23:46] LABS: ALBUMIN 3.9 GM/DL (3.2-4.5); BILIRUBIN,TOTAL 0.2 MG/DL (0.1-1.0); CALCIUM 9.4 MG/DL (8.5-10.1); CREATININE SERUM 0.55 MG/DL (0.60-1.30); POTASSIUM 3.8 MMOL/L (3.6-5.0); TOTAL PROTEIN 6.7 GM/DL (6.4-8.2)
[2022-06-26] MEDS ORDERED: CEFD300C3 PO (23:52)
== END 2022-06-27 00:41 | disposition home or self-care (01) ==
LOC: EDUNIT# 22:49 → ER FS 22:51
DX: O23.01 Infections of kidney in pregnancy, first trimester (principal); O99.331 Smoking (tobacco) complicating pregnancy, first trimester; F17.290 Nicotine dependence, other tobacco product, uncomplicated; Z3A.13 13 weeks gestation of pregnancy; Z20.822 Contact with and (suspected) exposure to COVID-19; Z28.310 Unvaccinated for COVID-19
CPT/HCPCS: 36415; 80053; 81000; 85025; 87077; 87088; 87636